=== PATIENT | male | born 1945 | race Caucasian/White ===

== ENCOUNTER → 2016-10-18 | Outpatient (CLI) | payer MEDICARE, BC ==
[~2016-10-18] VITALS: Ht 188 cm; Wt 131.6 kg
[~2016-10-18] MED LIST: AMARYL2 MG PO; HYTRIN UD5 MG PO; LANTUS100 UNIT/1 SUB-Q
== END | disposition disaster alternative care site (69) ==
LOC: GOPD 10-16 → EDSTATUS → GRAD 09:27 → GOPD 10:00
DX: M47.26 Other spondylosis with radiculopathy, lumbar region (principal); M48.06 Spinal stenosis, lumbar region; E11.40 Type 2 diabetes mellitus with diabetic neuropathy, unspecified; Z79.4 Long term (current) use of insulin; Z98.1 Arthrodesis status; Z98.890 Other specified postprocedural states
CPT/HCPCS: J7030

== ENCOUNTER 2016-11-05 10:04 | Emergency (ER) | payer MEDICARE, BC ==
--- NOTE | ~2016-11-05 | ER ---
PATIENT'S NAME: CHAITANYA LUNA [facility] AGE: 71 Y [address] ROOM: [place] [address] LOCATION: [facility] ADMIT DATE: 11/05/2016 ER/Outpatient Report DISCHARGE DATE: 11/05/2016 FAMILY PHYSICIAN: ASYA BYRD MD ATTENDING PHYSICIAN: Nicolette Haynes Time of Arrival: 1004 hours. Time of Evaluation: 1019 hours. IDENTIFICATION: A 71-year-old male presents with what he describes as "prostate problems." The patient describes as general lower abdominal discomfort and feeling like his bladder is not emptying completely. He has had nausea, vomiting x2. No fever or chills. This has happened in the past, and he usually gets Cipro prescribed by Dr. Devine, and then sees him a couple of days later. The patient was unable to get a hold of Dr. Devine today. ALLERGIES: KEFLEX, CONTRAST DYE, AND ANTIHISTAMINES. CURRENT MEDICATIONS: 1. Lantus 60 units q.a.m., 68 units q.p.m. 2. Terazosin 5 mg q.a.m., 10 mg q.p.m. 3. Glimepiride 4 mg q.a.m. and 2 mg q.p.m. MEDICAL PROBLEMS: Urinary retention, headaches, insulin-dependent diabetes mellitus type 2, peripheral diabetic neuropathy, dyslipidemia, hypertension, peripheral vascular disease, obesity, prostatitis, prostatism, diverticulosis, diverticulitis. PRIOR SURGERIES: Colon resection. He has a colostomy, transurethral resection of the prostate, 3 back surgeries, cholecystectomy, cardiac catheterization,and dental surgeries. REVIEW OF SYSTEMS: All systems are reviewed. FAMILY HISTORY: No pertinent family history. PHYSICAL EXAMINATION: VITAL SIGNS: Height 6 feet 2 inches, weight 140.2 kg, blood pressure 145/76, pulse 85, respirations 17, temp 96.9, and saturations 97%. PATIENT'S NAME: CHAITANYA LUNA [facility] AGE: 71 Y [address] ROOM: [place] [address] LOCATION: ED ADMIT DATE: 11/05/2016 ER/Outpatient Report DISCHARGE DATE: 11/05/2016 FAMILY PHYSICIAN: ASYA BYRD MD ATTENDING PHYSICIAN: Nicolette Haynes GENERAL: Pleasant male, in no acute distress. HEENT: Head: Normocephalic. Eyes: Pupils equal and reactive to light and accommodation. Extraocular movements intact. TMs not visualized. Nose: Mucosa pink, no lesions. Mouth: No lesions. Pharynx benign. NECK: Supple. No lymphadenopathy. No nuchal rigidity. LUNGS: Clear to auscultation. No rhonchi, wheezes, or rales. HEART: Regular rate and rhythm. ABDOMEN: Obese. Bowel sounds present. Soft, nondistended, tender minimally to palpation suprapubic. No rebound or guarding. No CVA tenderness. SKIN: [place], warm, and dry. No lesions or rashes noted. NEURO: No focal deficit. LABORATORY DATA AND X-RAYS: UA was obtained, which was negative on the dipstick. IMPRESSION AND PLAN: Suprapubic tenderness and symptoms possibly secondary to prostatitis. The patient really would like to go ahead with Cipro. We prescribed Cipro 500 mg b.i.d. for 3 days. Push fluids and rest. Continue current home medications and follow up in [address] Devine. The patient understands and agrees, and all questions have been answered. NICOLETTE HAYNES MD CAR/modl /[id number] d: 11/05/162018 t: 11/09/16 0931, OUTPATIENT REPORT
[2016-11-05 10:44] LABS: BILIRUBIN URINE NEGATIVE (NEGATIVE); BLOOD URINE NEGATIVE /UL (NEGATIVE); COLOR URINE YELLOW (YELLOW); GLUCOSE URINE 50 mg/dL (NEGATIVE); KETONE URINE NEGATIVE (NEGATIVE); LEUKOCYTES URINE NEGATIVE /UL (NEGATIVE); NITRITE URINE NEGATIVE (NEGATIVE); PROTEIN URINE NEGATIVE (NEGATIVE); SPEC GRAVITY URINE 1.015 (1.003-1.035); TURBIDITY URINE CLEAR (CLEAR); UROBILINOGEN URINE NORMAL (NORMAL)
== END 2016-11-05 11:12 | disposition disaster alternative care site (69) ==
LOC: GMED 10:04
PROVIDERS: Family Medicine
DX: N41.9 Inflammatory disease of prostate, unspecified (principal); K57.90 Diverticulosis of intestine, part unspecified, without perforation or abscess without bleeding; I73.9 Peripheral vascular disease, unspecified; E11.42 Type 2 diabetes mellitus with diabetic polyneuropathy; E78.5 Hyperlipidemia, unspecified; I10 Essential (primary) hypertension; E66.9 Obesity, unspecified; Z90.49 Acquired absence of other specified parts of digestive tract; Z98.61 Coronary angioplasty status; Z79.4 Long term (current) use of insulin; Z79.899 Other long term (current) drug therapy; Z91.041 Radiographic dye allergy status

== ENCOUNTER 2017-01-25 03:36 | Emergency (ER) | payer MEDICARE, BC ==
--- NOTE | ~2017-01-25 | ER ---
PATIENT'S NAME: CHAITANYA LUNA [facility] AGE: 71 Y [address] ROOM: [place] [address] LOCATION: [facility] ADMIT DATE: 01/25/2017 ER/Outpatient Report DISCHARGE DATE: 01/25/2017 FAMILY PHYSICIAN: Gilles Bird MD ATTENDING PHYSICIAN: Evaristo Watson Time of Arrival: Time of Evaluation: Admission date and time documented in the medical record. I saw the patient at 0345 hours. CHIEF COMPLAINT: Urinary retention, suprapubic abdominal pain. HISTORY OF PRESENT ILLNESS: This patient is a 71-year-old male, who has been having some problems with urinary frequency, urgency, and dysuria over the past 2 weeks. He took 10 days of Cipro twice a day and did better. When he stopped the antibiotic, his symptoms came back. Tonight, he urinated in small amounts about 50 plus times and then started having some suprapubic abdominal pain and discomfort, and he presented to the emergency room for evaluation. He states that he has had this happened before, and had to have a catheter placed because of urinary retention. No fall or trauma. No recent colds, coughs, flus, fever, chills, or sweats. No chest pain or shortness of breath. No lightheadedness, dizziness, syncope, or near syncope. No headache, eyes, ears, nose, throat, neck, or spine pain. No chest pain, shortness of breath. No nausea, vomiting, or diarrhea. No joint or muscle swelling, redness, or pain. No skin eruptions or rash. No history of neurological changes, psychiatric issues. The patient does have insulin-dependent diabetes mellitus, type 2. HOME MEDICATIONS: See attached medication list. ALLERGIES: SULFA, IV CONTRAST DYE. SOCIAL HISTORY: Nonsmoker and nondrinker. SIGNIFICANT PAST MEDICAL HISTORY: 1. Hypertension. 2. Benign prostatic hypertrophy. 3. Prostatitis. 4. Urinary retention. 5. Headaches. 6. Insulin-dependent diabetes mellitus, type 2. PATIENT'S NAME: CHAITANYA LUNA [facility] AGE: 71 Y [address] ROOM: [place] [address] LOCATION: [facility] ADMIT DATE: 01/25/2017 ER/Outpatient Report DISCHARGE DATE: 01/25/2017 FAMILY PHYSICIAN: Gilles Bird MD ATTENDING PHYSICIAN: Evaristo Watson 7. Peripheral diabetic neuropathy. 8. Dyslipidemia. 9. Peripheral vascular disease. 10. Exogenous obesity. 11. Diverticulosis. 12. Diverticulitis. PAST SURGICAL HISTORY: Operations: 1. Colon resection with ostomy placement. 2. Transurethral resection of the prostate. 3. Back surgery x3, with fusions. 4. Cholecystectomy. 5. Cardiac catheterization. 6. Dental surgery. REVIEW OF SYSTEMS: All systems were reviewed by me are negative with the exception of those discussed in the history of the present illness. PHYSICAL EXAMINATION: VITAL SIGNS: Temperature 96.7, tympanic; pulse 89; respirations 18; blood pressure 152/70; and O2 saturation on room air is 97%. HEENT: Head; normocephalic. Eyes, ears, nose, throat; clear. Mucous membranes moist. NECK: Negative. SPINE: Negative. LUNGS: Clear. HEART: Regular. Pulses are palpable. ABDOMEN: Moderately obese. Soft. Nondistended. Tender suprapubically and no CVA tenderness. EXTREMITIES: Intact. NEUROLOGIC: Neurovascularly intact. SKIN: Clear. No skin eruptions or rash. EMERGENCY DEPARTMENT COURSE: Morales catheter was placed. The patient had clear urine about 750 to 800 mL. Urinalysis was sent down. Urinalysis was clear other than 50 glucose on dipstick. IMPRESSION: 1. Urinary retention secondary to benign prostatic hypertrophy. 2. Insulin-dependent diabetes mellitus, type 2. 3. Hypertension. 4. Diabetic peripheral neuropathy. PATIENT'S NAME: CHAITANYA LUNA [facility] AGE: 71 Y [address] ROOM: [place] [address] LOCATION: ED ADMIT DATE: 01/25/2017 ER/Outpatient Report DISCHARGE DATE: 01/25/2017 FAMILY PHYSICIAN: Gilles Bird MD ATTENDING PHYSICIAN: Evaristo Watson 5. Peripheral vascular disease. 6. Dyslipidemia. 7. Exogenous obesity. PLAN: Morales catheter was left in place. Leg bag was applied. The patient dismissed to home. Observation. Activity as tolerated. Continue present home medications and care. Fluids and diet as tolerated. See urologist like Dr. Devine if possible on Sunday or Sunday. Follow up with personal physician as needed. Discussion ensued with the patient concerning my findings and recommendations, he understands. MD COLLINS WOOD/modl /[id number] d: 01/25/17 1105 t: 01/25/17 1817, OUTPATIENT REPORT
[2017-01-25 04:17] LABS: BILIRUBIN URINE NEGATIVE (NEGATIVE); BLOOD URINE NEGATIVE /UL (NEGATIVE); COLOR URINE YELLOW (YELLOW); GLUCOSE URINE 50 mg/dL (NEGATIVE); KETONE URINE NEGATIVE (NEGATIVE); LEUKOCYTES URINE NEGATIVE /UL (NEGATIVE); NITRITE URINE NEGATIVE (NEGATIVE); PROTEIN URINE NEGATIVE (NEGATIVE); SPEC GRAVITY URINE 1.005 (1.003-1.035); TURBIDITY URINE CLEAR (CLEAR); UROBILINOGEN URINE NORMAL (NORMAL)
== END 2017-01-25 05:36 | disposition disaster alternative care site (69) ==
LOC: GMED 03:36
PROVIDERS: Emergency Medicine
PROC: 0T9B70Z Drainage of Bladder with Drainage Device, Via Natural or Artificial Opening (ICD-10-PCS; principal; 2017-01-25)
DX: N40.1 Benign prostatic hyperplasia with lower urinary tract symptoms (principal); R33.8 Other retention of urine; E66.9 Obesity, unspecified; E78.5 Hyperlipidemia, unspecified; E11.40 Type 2 diabetes mellitus with diabetic neuropathy, unspecified; I10 Essential (primary) hypertension; Z90.49 Acquired absence of other specified parts of digestive tract; Z98.890 Other specified postprocedural states; Z90.79 Acquired absence of other genital organ(s); Z88.2 Allergy status to sulfonamides; Z91.041 Radiographic dye allergy status; Z79.899 Other long term (current) drug therapy; Z88.8 Allergy status to other drugs, medicaments and biological substances; Z88.1 Allergy status to other antibiotic agents; Z79.4 Long term (current) use of insulin

== ENCOUNTER 2017-01-29 03:53 | Emergency (ER) | payer MEDICARE, BC ==
--- NOTE | ~2017-01-29 | ER ---
PATIENT'S NAME: CHAITANYA LUNA [facility] AGE: 71 Y [address] ROOM: [place] [address] LOCATION: ED ADMIT DATE: 01/29/2017 ER/Outpatient Report DISCHARGE DATE: 01/29/2017 FAMILY PHYSICIAN: Gilles Bird MD ATTENDING PHYSICIAN: Evaristo Watson Admission date and time are documented on the medical record. I saw the patient at 0410 hours. CHIEF COMPLAINT: Morales catheter removal. HISTORY OF PRESENT ILLNESS: The patient is a 71-year-old male who presented to the emergency room for evaluation because he could not get his Morales catheter out. The patient did not realize he had to deflate the balloon at the tip of the Morales catheter. He had been tugging on it and just could not get it out. He had a little bit of bleeding. Stopped before he got any more discomfort. Brought to the emergency room by private vehicle for evaluation. HOME MEDICATIONS: See attached medication list. ALLERGIES: SULFA, IV CONTRAST DYE. SOCIAL HISTORY: Nonsmoker, nondrinker. SIGNIFICANT PAST MEDICAL HISTORY: Hypertension, benign prostatic hypertrophy, prostatitis, urinary retention, headaches, insulin-dependent diabetes mellitus type 2, peripheral diabetic neuropathy, dyslipidemia, peripheral vascular disease, exogenous obesity, diverticulosis, diverticulitis. OPERATIONS: Colon resection with ostomy placement, transurethral resection of the prostate, back surgery x3 with fusions, cholecystectomy, cardiac catheterization, dental surgery. REVIEW OF SYSTEMS: All systems reviewed by me are negative with exception of those discussed in the history of present illness. PHYSICAL EXAMINATION: PATIENT'S NAME: CHAITANYA LUNA [facility] AGE: 71 Y [address] ROOM: [place] [address] LOCATION: ED ADMIT DATE: 01/29/2017 ER/Outpatient Report DISCHARGE DATE: 01/29/2017 FAMILY PHYSICIAN: Gilles Bird MD ATTENDING PHYSICIAN: Evaristo Watson VITAL SIGNS: Blood pressure 134/74, pulse 98, respirations 16, temperature 97.5 tympanic, O2 saturation on room air is 96%. GENERAL: The patient had indwelling Morales catheter. The balloon was deflated, catheter was removed, there was no active bleeding. ABDOMEN: Soft, nondistended, nontender. Active bowel tones. No CVA tenderness. NEUROVASCULAR: Appears to be intact. IMPRESSION: Removal of indwelling Morales catheter. PLAN: The patient dismissed home. Observation. Activity as tolerated. Fluid and diet as tolerated. Continue present home medications and care. Follow up with personal physician as scheduled later this morning. MD COLLINS WOOD/modl /[id number] P d: 01/29/17 0439 t: 01/29/17 1830, OUTPATIENT REPORT
== END 2017-01-29 04:20 | disposition disaster alternative care site (69) ==
LOC: GMED 03:53
DX: Z46.6 Encounter for fitting and adjustment of urinary device (principal); I10 Essential (primary) hypertension; N40.0 Benign prostatic hyperplasia without lower urinary tract symptoms; E11.42 Type 2 diabetes mellitus with diabetic polyneuropathy; E78.5 Hyperlipidemia, unspecified; E66.09 Other obesity due to excess calories; Z90.49 Acquired absence of other specified parts of digestive tract; Z95.828 Presence of other vascular implants and grafts; Z88.1 Allergy status to other antibiotic agents; Z88.2 Allergy status to sulfonamides; Z91.041 Radiographic dye allergy status; Z79.899 Other long term (current) drug therapy; Z98.890 Other specified postprocedural states